=== PATIENT | female | born 1995 | race Caucasian/White ===

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

== ENCOUNTER 2017-05-06 19:56 | Emergency (ER) | payer SELFPAY ==
[~2017-05-06] VITALS: Ht 160 cm; Wt 46.1 kg
[2017-05-06 20:42] LABS: HEMATOCRIT 37.6 % (36.0-46.0); MCH 29.8 PG (29.0-34.0); MCHC 34.8 G/DL (30.0-36.0); MCV 85.6 FL (83-99); MEAN PLAT.VOLUME 10.6 uM^3 (9.5-12.4); PLATELET COUNT 237 K/uL (156-360); RBC DIS.WIDTH-CV 11.4 % (11.8-14.6); RBC DIS.WIDTH-SD 35.9 % (39-53); RED BLOOD COUNT 4.39 M/uL (3.80-5.20); WHITE BLOOD COUNT 9.2 K/uL (4.1-10.2)
[2017-05-06 20:50] LABS: CHLORIDE 105 mEq/L (99-109); POTASSIUM 3.8 mEq/L (3.7-5.4); SODIUM 139 mEq/L (136-147)
[2017-05-06 20:53] LABS: GLUCOSE 93 mg/dL (70-99)
[2017-05-06 20:54] LABS: ADD MIUA? YES; BILIRUBIN SMALL; BLOOD LARGE; COLOR YELLOW ((YELLOW)); GLUCOSE (STRIP) NEGATIVE; KETONES 80; LEUKOCYTES NEGATIVE; NITRITE NEGATIVE; PROTEIN (STRIP) 100; SPECIFIC GRAVITY 1.043 (1.000-1.030)
[2017-05-06 20:54] LABS: ANION GAP 13 MEQ/L (2-14)
[2017-05-06 20:55] LABS: TOTAL BILIRUBIN 2.6 mg/dL (0.0-1.0)
[2017-05-06 20:56] LABS: ALKALINE PHOSPHATASE 56 IU/L (3-129); GFR ESTIMATE (CALCULATED) > 59 mL/min/
[2017-05-06 20:57] LABS: UREA NITROGEN (BUN) 14 mg/dL (9-23)
[2017-05-06 21:05] LABS: QUANTITATIVE HCG < 4.0 MIU/ML
[2017-05-06 21:11] LABS: EPITHELIAL CELLS 2+ /HPF; RED BLOOD CELLS TNTC /HPF (0-5); WHITE BLOOD CELLS 0-5 /HPF (0-5)
[2017-05-06 21:12] LABS: BACTERIA 1+ /HPF; CASTS NONE SEEN /LPF; CRYSTALS NONE SEEN; MUCUS TRACE /LPF; UCUL ADDED? YES
[2017-05-06 21:36] LABS: LIPASE 6 U/L (1.0-51.0)
[2017-05-07] MEDS ORDERED: ZOFRAN ODT4 MG PO (00:04)
[2017-05-07 00:45] VITALS: BP 104/66
== END 2017-05-07 00:45 | disposition home or self-care (01) ==
LOC: EXP 19:56 → EME 19:56 → EXP 05-07 00:45
PROVIDERS: Physician Assistant
DX: R10.9 Unspecified abdominal pain (principal); R11.2 Nausea with vomiting, unspecified; E86.0 Dehydration; R31.9 Hematuria, unspecified; F17.200 Nicotine dependence, unspecified, uncomplicated
CPT/HCPCS: 74176; 80053; 81003; 83690; 84702; 85027; 87086; 99281; 99285; J1200; J2270; J2405; J7030; S0028

== ENCOUNTER 2017-05-22 23:43 | Emergency (ER) | payer SELFPAY ==
[~2017-05-22] VITALS: Ht 160 cm; Wt 44.9 kg
[~2017-05-22 23:43] MED LIST changes: +ZOFRAN ODT4 MG PO
[2017-05-23 00:44] LABS: HEMATOCRIT 39.2 % (36.0-46.0); MCH 29.1 PG (29.0-34.0); MCHC 34.7 G/DL (30.0-36.0); MCV 83.9 FL (83-99); RBC DIS.WIDTH-CV 11.9 % (11.8-14.6); RBC DIS.WIDTH-SD 35.8 % (39-53); RED BLOOD COUNT 4.67 M/uL (3.80-5.20); WHITE BLOOD COUNT 19.9 K/uL (4.1-10.2)
[2017-05-23 00:57] LABS: CHLORIDE 110 mEq/L (99-109); POTASSIUM 3.6 mEq/L (3.7-5.4); SODIUM 141 mEq/L (136-147)
[2017-05-23 00:59] LABS: GLUCOSE 108 mg/dL (70-99)
[2017-05-23 01:00] LABS: ANION GAP 17 MEQ/L (2-14)
[2017-05-23 01:01] LABS: TOTAL BILIRUBIN 3.5 mg/dL (0.0-1.0)
[2017-05-23 01:03] LABS: ALKALINE PHOSPHATASE 53 IU/L (3-129); GFR ESTIMATE (CALCULATED) > 59 mL/min/
[2017-05-23 01:04] LABS: UREA NITROGEN (BUN) 13 mg/dL (9-23)
[2017-05-23 01:14] LABS: QUANTITATIVE HCG < 4.0 MIU/ML
[2017-05-23 01:57] LABS: PLAT.SUFFICIENCY ADEQUATE; PLATELET CLUMPS PRESENT - PLATELET COUNT APPEARS ADQ.
[2017-05-23 02:27] LABS: SERUM ETHYL ALCOHOL < 10 mg/dL
[2017-05-23 02:28] LABS: CARBON DIOXIDE (BICARBONATE) 22.6 MEQ/L (20-31)
[2017-05-23 02:30] LABS: SALICYLATE < 5.0 MG/DL (15-30)
[2017-05-23 02:31] LABS: LIPASE 24 U/L (1.0-51.0)
[2017-05-23 02:54] LABS: CREATINE KINASE 106 IU/L (1-294)
[2017-05-23 04:30] LABS: ADD MIUA? YES; BILIRUBIN NEGATIVE; BLOOD MODERATE; COLOR YELLOW ((YELLOW)); GLUCOSE (STRIP) NEGATIVE; KETONES 80; LEUKOCYTES NEGATIVE; NITRITE NEGATIVE; PROTEIN (STRIP) 30; SPECIFIC GRAVITY 1.025 (1.000-1.030); UROBILINOGEN 0.2 MG/DL (0.2-1.0)
[2017-05-23 04:33] LABS: AMPHETAMINE NEGATIVE (500 ng/mL); BARBITURATES NEGATIVE (200 ng/mL); BENZODIAZEPINES NEGATIVE (150 ng/mL); COCAINE NEGATIVE (150 ng/mL); METHADONE NEGATIVE (200 ng/mL); METHAMPHETAMINE NEGATIVE (500 ng/mL); OPIATES (MORPHINE) NEGATIVE (100 ng/mL); OXYCODONE NEGATIVE (100 ng/mL); PHENCYCLIDINE NEGATIVE (25 ng/mL); PROPOXYPHENE NEGATIVE (300 ng/mL); THC CANNABINOIDS PRESUMPTIVE POSITIVE (50 ng/mL); TRICYCLIC ANTIDEPRESSANTS NEGATIVE (300 ng/mL)
[2017-05-23 04:34] LABS: ADD MEDTOX COMMENT Y; INTERNAL CONTROLS VALID? YES
[2017-05-23 04:37] LABS: BACTERIA NONE SEEN /HPF; EPITHELIAL CELLS RARE /HPF; MUCUS TRACE /LPF; RED BLOOD CELLS TNTC /HPF (0-5); UCUL ADDED? YES; WHITE BLOOD CELLS 0-5 /HPF (0-5)
[2017-05-23] MEDS ORDERED: AUGMENTIN875 MG PO (05:00)
[2017-05-23] MEDS ORDERED: ZOFRAN4 MG PO (05:00)
[2017-05-23 05:33] VITALS: BP 120/47
== END 2017-05-23 05:34 | disposition home or self-care (01) ==
LOC: EME 23:43
PROVIDERS: Emergency Medicine
DX: R11.2 Nausea with vomiting, unspecified (principal); N83.202 Unspecified ovarian cyst, left side; K04.7 Periapical abscess without sinus; E86.0 Dehydration; R19.7 Diarrhea, unspecified; R82.4 Acetonuria; F17.200 Nicotine dependence, unspecified, uncomplicated
CPT/HCPCS: 76856; 80053; 81003; 82550; 82803; 83690; 84702; 84999; 85027; 87077; 87086; 87210; 87651 90; 99281; 99285; G0480; J2405; J7030

== ENCOUNTER 2017-09-04 20:49 | Emergency (ER) | payer OTHER ==
[~2017-09-04] VITALS: Ht 157.5 cm; Wt 51.2 kg
[~2017-09-04 20:49] MED LIST changes: +AUGMENTIN875 MG PO
[2017-09-04 21:16] LABS: APPEARANCE CLOUDY ((CLEAR)); BILIRUBIN NEGATIVE; BLOOD LARGE; COLOR YELLOW ((YELLOW)); GLUCOSE (STRIP) NEGATIVE; KETONES NEGATIVE; LEUKOCYTES NEGATIVE; NITRITE NEGATIVE; PROTEIN (STRIP) 30; SPECIFIC GRAVITY 1.021 (1.000-1.030)
[2017-09-04 21:32] LABS: BACTERIA 3+ /HPF; EPITHELIAL CELLS 2+ /HPF; MUCUS NONE SEEN /LPF; RED BLOOD CELLS TNTC /HPF (0-5); UCUL ADDED? YES; WHITE BLOOD CELLS 0-5 /HPF (0-5)
[2017-09-04 22:02] LABS: HEMATOCRIT 41.8 % (36.0-46.0); HEMOGLOBIN 14.5 G/DL (11.9-15.5); MCH 30.1 PG (29.0-34.0); MCHC 34.7 G/DL (30.0-36.0); MCV 86.7 FL (83-99); PLATELET COUNT 282 K/uL (156-360); RBC DIS.WIDTH-CV 12.7 % (11.8-14.6); RED BLOOD COUNT 4.82 M/uL (3.80-5.20); WHITE BLOOD COUNT 10.1 K/uL (4.1-10.2)
[2017-09-04 22:12] LABS: ALBUMIN 4.3 g/dL (3.2-4.8); CHLORIDE 106 mEq/L (99-109); POTASSIUM 3.7 mEq/L (3.7-5.4); SODIUM 142 mEq/L (136-147)
[2017-09-04 22:14] LABS: GLUCOSE 107 mg/dL (70-99); TOTAL PROTEIN 7.7 g/dL (6.4-8.3)
[2017-09-04 22:16] LABS: TOTAL BILIRUBIN 1.9 mg/dL (0.0-1.0)
[2017-09-04 22:18] LABS: ALKALINE PHOSPHATASE 57 IU/L (3-129); CREATININE 0.7 mg/dL (0.6-1.3); GFR ESTIMATE (CALCULATED) > 59 mL/min/
[2017-09-04 22:19] LABS: UREA NITROGEN (BUN) 11 mg/dL (9-23)
[2017-09-04 22:20] LABS: AST (GOT) 15 IU/L (2-34)
[2017-09-04 22:21] LABS: ALT (GPT) 9 IU/L (3-49)
[2017-09-04 22:34] LABS: QUANTITATIVE HCG < 4.0 MIU/ML
[2017-09-04] MEDS ORDERED: KEFLEX500 MG PO (23:58)
[2017-09-05 00:39] VITALS: BP 117/83
== END 2017-09-05 00:39 | disposition home or self-care (01) ==
LOC: EME 20:49
DX: N39.0 Urinary tract infection, site not specified (principal); F17.200 Nicotine dependence, unspecified, uncomplicated
CPT/HCPCS: 76856; 80053; 81003; 84702; 85027; 87086; 99281; 99284

== ENCOUNTER 2018-03-27 20:28 | Emergency (ER) | payer OTHER ==
[~2018-03-27] VITALS: Ht 160 cm; Wt 45.9 kg
[~2018-03-27 20:28] MED LIST changes: +KEFLEX500 MG PO
[2018-03-27 21:13] LABS: HEMOGLOBIN 14.3 G/DL (11.9-15.5); MCH 30.7 PG (29.0-34.0); MCHC 34.9 G/DL (30.0-36.0); PLATELET COUNT 225 K/uL (156-360); RBC DIS.WIDTH-CV 12.5 % (11.8-14.6); RBC DIS.WIDTH-SD 39.8 % (39-53); RED BLOOD COUNT 4.66 M/uL (3.80-5.20); WHITE BLOOD COUNT 9.9 K/uL (4.1-10.2)
[2018-03-27 21:31] LABS: APPEARANCE CLEAR ((CLEAR)); BILIRUBIN NEGATIVE; BLOOD MODERATE; COLOR YELLOW ((YELLOW)); GLUCOSE (STRIP) NEGATIVE; KETONES NEGATIVE; LEUKOCYTES SMALL; NITRITE NEGATIVE; PROTEIN (STRIP) NEGATIVE; SPECIFIC GRAVITY 1.023 (1.000-1.030); UROBILINOGEN 0.2 MG/DL (0.2-1.0)
[2018-03-27 21:37] LABS: ALBUMIN 4.3 g/dL (3.2-4.8)
[2018-03-27 21:38] LABS: CHLORIDE 107 mEq/L (99-109); SODIUM 141 mEq/L (136-147)
[2018-03-27 21:40] LABS: GLUCOSE 85 mg/dL (70-99); TOTAL PROTEIN 7.3 g/dL (6.4-8.3)
[2018-03-27 21:42] LABS: TOTAL BILIRUBIN 0.9 mg/dL (0.0-1.0)
[2018-03-27 21:43] LABS: ALKALINE PHOSPHATASE 60 IU/L (3-129)
[2018-03-27 21:44] LABS: CREATININE 0.8 mg/dL (0.6-1.3); GFR ESTIMATE (CALCULATED) > 59 mL/min/
[2018-03-27 21:45] LABS: AST (GOT) 16 IU/L (2-34); DIRECT BILIRUBIN 0.3 mg/dL (0.0-0.3); UREA NITROGEN (BUN) 10 mg/dL (9-23)
[2018-03-27 21:47] LABS: ALT (GPT) 12 IU/L (3-49)
[2018-03-27 21:47] LABS: BACTERIA NONE SEEN /HPF; CALCIUM OXALATE CRYSTALS 2+ /HPF; EPITHELIAL CELLS 1+ /HPF; MUCUS TRACE /LPF; RED BLOOD CELLS 0-5 /HPF (0-5); UCUL ADDED? YES
[2018-03-27 21:53] LABS: QUANTITATIVE HCG < 4.0 MIU/ML
[2018-03-28] MEDS ORDERED: KEFLEX500 MG PO (00:21)
[2018-03-28 00:34] VITALS: BP 102/73
== END 2018-03-28 00:40 | disposition home or self-care (01) ==
LOC: EME 20:28
DX: R10.31 Right lower quadrant pain (principal); R31.9 Hematuria, unspecified; M54.9 Dorsalgia, unspecified; F17.200 Nicotine dependence, unspecified, uncomplicated
CPT/HCPCS: 74177; 76856; 80048; 80076; 81003; 84702; 85027; 87077; 87086; 87186; 99281; 99284; J1885; J7030

== ENCOUNTER 2018-05-02 05:43 | Emergency (ER) | payer OTHER ==
[~2018-05-02] VITALS: Ht 157.5 cm; Wt 48.0 kg
[2018-05-02 07:25] LABS: HEMATOCRIT 39.2 % (36.0-46.0); HEMOGLOBIN 13.5 G/DL (11.9-15.5); MCH 30.7 PG (29.0-34.0); MCHC 34.4 G/DL (30.0-36.0); MCV 89.1 FL (83-99); PLATELET COUNT 224 K/uL (156-360); RBC DIS.WIDTH-CV 13.2 % (11.8-14.6); RBC DIS.WIDTH-SD 42.5 % (39-53); WHITE BLOOD COUNT 10.8 K/uL (4.1-10.2)
[2018-05-02 08:06] LABS: QUANTITATIVE HCG < 4.0 MIU/ML
[2018-05-02 08:25] LABS: CHLORIDE 102 MEQ/L (99-109); POTASSIUM 3.6 MEQ/L (3.7-5.4); SODIUM 138 MEQ/L (136-147)
[2018-05-02 08:30] LABS: CREATININE 0.6 MG/DL (0.6-1.3); GFR ESTIMATE (CALCULATED) > 59 mL/min/; GLUCOSE 95 mg/dL (70-99); SERUM ETHYL ALCOHOL 13 mg/dL; UREA NITROGEN (BUN) 11 mg/dL (9-23)
[2018-05-02 08:45] LABS: APPEARANCE CLEAR ((CLEAR)); BILIRUBIN NEGATIVE; BLOOD SMALL; COLOR YELLOW ((YELLOW)); GLUCOSE (STRIP) NEGATIVE; KETONES NEGATIVE; LEUKOCYTES NEGATIVE; NITRITE NEGATIVE; PROTEIN (STRIP) NEGATIVE
[2018-05-02 08:47] LABS: BACTERIA NONE SEEN /HPF; EPITHELIAL CELLS RARE /HPF; MUCUS TRACE /LPF; RED BLOOD CELLS 0-5 /HPF (0-5); UCUL ADDED? NO; WHITE BLOOD CELLS 0-5 /HPF (0-5)
[2018-05-02 08:52] LABS: AMPHETAMINE PRESUMPTIVE POSITIVE (500 ng/mL); BARBITURATES NEGATIVE (200 ng/mL); BENZODIAZEPINES NEGATIVE (150 ng/mL); BUPRENORPHINE NEGATIVE (10 ng/mL); COCAINE NEGATIVE (150 ng/mL); METHADONE NEGATIVE (200 ng/mL); METHAMPHETAMINE NEGATIVE (500 ng/mL); OPIATES (MORPHINE) NEGATIVE (100 ng/mL); OXYCODONE NEGATIVE (100 ng/mL); PHENCYCLIDINE NEGATIVE (25 ng/mL); PROPOXYPHENE NEGATIVE (300 ng/mL); THC CANNABINOIDS PRESUMPTIVE POSITIVE (50 ng/mL); TRICYCLIC ANTIDEPRESSANTS NEGATIVE (300 ng/mL)
[2018-05-02 10:26] VITALS: BP 104/71
== END 2018-05-02 10:26 | disposition home or self-care (01) ==
LOC: EME 05:43
PROVIDERS: Emergency Medicine
DX: S80.211A Abrasion, right knee, initial encounter (principal); R51 Headache; M54.2 Cervicalgia; V49.40XA Driver injured in collision with unspecified motor vehicles in traffic accident, initial encounter; Y92.410 Unspecified street and highway as the place of occurrence of the external cause; F19.10 Other psychoactive substance abuse, uncomplicated; F17.200 Nicotine dependence, unspecified, uncomplicated
CPT/HCPCS: 73552; 73564; 80048; 81003; 84702; 84999; 85027; 99281; 99284; G0480